=== PATIENT | female | born 1955 | race Caucasian/White ===

== ENCOUNTER 2018-02-05 09:10 | Emergency (ER) | payer BC, OTHER | END 2018-02-05 09:55 | disposition home or self-care (01) | LOC: BURERS 09:10 | DX: S60.372A Other superficial bite of left thumb, initial encounter (principal); S61.032A Puncture wound without foreign body of left thumb without damage to nail, initial encounter; K21.9 Gastro-esophageal reflux disease without esophagitis; Z87.891 Personal history of nicotine dependence; W54.0XXA Bitten by dog, initial encounter | CPT/HCPCS: 99283 ==

== ENCOUNTER 2018-05-02 18:42 | Emergency (ER) | payer BC ==
--- NOTE | 2018-05-02 22:19 | RAD ---
LEFT SHOULDER THREE VIEWS: 05/02/18 No acute fracture or dislocation was seen. The AC joint is upper normal in width but not off-set. One of the views suggests a calcification just above the greater tubercle of the humerus. The clavicle a ppears intact. The visible ribs appear intact. IMPRESSION: 1. Upper normal width of AC joint without off-set. This may be the patient's norm or could be fr om a minimal AC joint injury, new or old. 2. Probable calcific tendonitis. POS: HOME
== END 2018-05-02 20:02 | disposition home or self-care (01) ==
LOC: BURERS 18:42
DX: S40.212A Abrasion of left shoulder, initial encounter (principal); V49.9XXA Car occupant (driver) (passenger) injured in unspecified traffic accident, initial encounter

== ENCOUNTER 2020-07-19 14:20 | Emergency (ER) | payer BC ==
[2020-07-19] MEDS ORDERED: Lidocaine 2% PF 5 ML VIAL ONE ×2 (14:31)
[2020-07-19] MEDS ORDERED: Bacitracin 1 PK ONE (14:55)
== END 2020-07-19 15:14 | disposition home or self-care (01) ==
LOC: BURERS 14:20
DX: S56.127A Laceration of flexor muscle, fascia and tendon of right little finger at forearm level, initial encounter (principal); S61.214A Laceration without foreign body of right ring finger without damage to nail, initial encounter; K21.9 Gastro-esophageal reflux disease without esophagitis; E78.5 Hyperlipidemia, unspecified; I10 Essential (primary) hypertension; J44.9 Chronic obstructive pulmonary disease, unspecified; Z87.891 Personal history of nicotine dependence; Z79.899 Other long term (current) drug therapy; W26.0XXA Contact with knife, initial encounter
CPT/HCPCS: 12002; J2001